=== PATIENT | female | born 1975 | race Caucasian/White ===

== ENCOUNTER 2018-04-13 12:55 | Emergency (ER) | payer BC ==
[2018-04-13] MEDS ORDERED: Bacitracin Oint 1 GM U/D Packet TOP ONE (13:56)
[2018-04-13] MEDS ORDERED: Diphtheria,Pertussis(Acell),Tetanus Vaccine 0.5 ML SDV IM ONE (13:56)
[2018-04-13] MEDS ORDERED: Lidocaine 1% with EPINEPHrine 1:100,000 50 ML MDV INFILT ONE (13:57)
--- NOTE | 2018-04-13 14:03 | EDM.PDOC ---
ED HPI GENERAL MEDICAL PROBLEM - General Chief Complaint: Laceration Stated Complaint: LARGE CUT ON RIGHT HAND Time Seen by Provider: 04/13/18 13:27 Source of Information: Reports: Patient History Limitations: Reports: No Limitations - History of Present Illness INITIAL COMMENTS - FREE TEXT/NARRATIVE: 43 yo female presents with laceration to right thumb. She was cleaning up bottles and lacerated dorsum of thumb. unsure of tetanus status. no other injuries. generally healthy - Related Data Allergies Allergy/AdvReac Type Severity Reaction Status Date / Time silver sulfadiazine Allergy Rash Verified 04/13/18 13:24 [From Silvadene] Home Meds: Home Meds DULoxetine [Cymbalta] 1 tab PO DAILY 04/13/18 [History] Estradiol 1 tab PO DAILY 04/13/18 [History] QUEtiapine [SEROquel] 1 tab PO QPM 04/13/18 [History] Zolpidem Tartrate [Ambien] 1 tab PO QPM 04/13/18 [History] Past Medical History [employer] History: Reports: Neurological History: Reports: Migraines Psychiatric History: Reports: Depression - Past Surgical History Female Surgical History: Reports: Hysterectomy Social & Family History - Tobacco Use Smoking Status *Q: Never Smoker Second Hand Smoke Exposure: No - Caffeine Use Caffeine Use: Reports: Coffee - Recreational Drug Use Recreational Drug Use: No ED ROS GENERAL - Review of Systems Review Of Systems: See Below Constitutional: Denies: Fever, Chills, Fatigue Respiratory: Denies: Shortness of Breath, Wheezing Cardiovascular: Denies: Chest Pain ED EXAM, SKIN/RASH Exam: See Below Exam Limited By: No Limitations General Appearance: Alert, WD/WN, No Apparent Distress, Other (exam limited to right hand) Respiratory/Chest: No Respiratory Distress Extremities: Other (10 mm x 5mm rectangle avulsion dorsum of right thumb) ED SKIN PROCEDURES - Laceration/Wound Repair Right Upper Dorsal Hand Lac/Wound length In cm: 1.5 Appearance: Superficial Distal NVT: Neuro & Vascular Intact, No Tendon Injury Anesthetic Type: Local Local Anesthesia - Lidocaine (Xylocaine): 1% with EPI Local Anesthetic Volume: 4cc Skin Prep: Chlorhexidine (Hibiciens), Saline, Sterile Drape Exploration/Debridement/Repair: Wound Explored, In a Bloodless Field, Explored to Base, Minimal Debridement, No Foreign Material Found Closed with: Sutures Suture Size: 4-0 # of Sutures: 3 Suture Type: Interrupted, Simple Sterile Dressing Applied: Nurse Tetanus Status Addressed: Yes Complications: No Course - Vital Signs Last Recorded V/S: Last Vital Signs Temp 36.3 C 04/13/18 13:39 Pulse 94 04/13/18 13:39 Resp 15 04/13/18 13:39 BP 115/84 04/13/18 13:39 Pulse Ox 100 04/13/18 13:39 - Orders/Labs/Meds Orders: Active Orders 24 hr Category Date Time Status Vaccines to be Administered [RC] PER UNIT ROUTINE Care 04/13/18 13:56 Active Meds: Medications Discontinued Medications Generic Name Dose Route Start Last Admin Trade Name Duncan PRN Reason Stop Dose Admin Bacitracin 1 dose 04/13/18 13:56 04/13/18 14:04 Bacitracin Oint 1 Gm TOP 04/13/18 13:57 1 dose ONETIME ONE Administration Diphtheria/Tetanus/Acell Pertussis 0.5 ml 04/13/18 13:56 04/13/18 14:07 Adacel IM 04/13/18 13:57 0.5 ml .ONCE ONE Administration Lidocaine/Epinephrine 5 ml 04/13/18 13:57 04/13/18 14:06 Xylocaine 1% With Epinephrine 1:100,000 INFILT 04/13/18 13:58 5 ml ONETIME ONE Administration - Re-Assessments/Exams Free Text/Narrative Re-Assessment/Exam: 04/13/18 14:29 laceration avulsion closed without difficulty Departure - Departure Time of Disposition: 14:29 Disposition: Home, Self-Care 01 Condition: Good Clinical Impression: Laceration of thumb Qualifiers: Encounter type: initial encounter Damage to nail status: without damage Foreign body presence: without foreign body Laterality: right Qualified Code(s) : S61.011A - Laceration without foreign body of right thumb without damage to nail, initial encounter - Discharge Information Instructions: Wound Care, Adult Referrals: PCP,None [Primary Care Provider] - Forms: ED Department Discharge Additional Instructions: keep dry over night, thereafter was with warm soapy water and pat dry keep clean sutures out in 9 days observe for signs of infection - fire engine red, purulent drainage, increase in pain ice as much as possible over the next 48 hours. tylenol 1000 mg every 6 hours and ibuprofen 400-600 mg every 6 hours for pain - My Orders Last 24 Hours: My Active Orders 04/13/18 13:56 Vaccines to be Administered [RC] PER UNIT ROUTINE - Assessment/Plan Last 24 Hours: My Active Orders 04/13/18 13:56 Vaccines to be Administered [RC] PER UNIT ROUTINE
== END 2018-04-13 14:44 | disposition home or self-care (01) ==
LOC: JP.ED 12:55
DX: S61.011A Laceration without foreign body of right thumb without damage to nail, initial encounter (principal); Z88.8 Allergy status to other drugs, medicaments and biological substances; Z23 Encounter for immunization; W25.XXXA Contact with sharp glass, initial encounter
CPT/HCPCS: 12001; 90471; 90715; 99283-25